=== PATIENT | male | born 1995 | race Caucasian/White ===

== ENCOUNTER 2016-05-01 15:30 | Emergency (ER) | payer OTHER ==
[~2016-05-01] VITALS: Ht 180.3 cm; Wt 74.8 kg
--- NOTE | 2016-05-01 16:45 | REP ---
RIGHT ANKLE SERIES, COMPLETE: 05/01/2016: Clinical history: Trauma. Four views are provided. Findings: The mortise joint was symmetric and preserved. There is no talar dome osteochondral defect. I see no visible or displaced fracture of the distal tibia or fibula. Subtalar joints are intact and no heel spurs. Talonavicular and calcaneocuboid joints were unremarkable. Impression: 1. No visible or displaced fracture about the ankle and no disruption of the ankle mortise joint. 2. Subtalar joints intact. Signed by Grabiel Heredia MD 05/01/2016 04:46 P
[2016-05-01 16:57] VITALS: BP 135/68
[2016-05-01] MEDS ORDERED: IBUP600T26 PO (17:08)
== END 2016-05-01 17:27 | disposition home or self-care (01) ==
LOC: M ED 16:43
DX: S93.401A Sprain of unspecified ligament of right ankle, initial encounter (principal); W19.XXXA Unspecified fall, initial encounter; Y92.138 Other place on military base as the place of occurrence of the external cause; Y93.89 Activity, other specified; Y99.1 Military activity

== ENCOUNTER 2016-07-03 14:29 | Emergency (ER) | payer OTHER ==
[~2016-07-03] VITALS: Ht 180.3 cm; Wt 78.9 kg
[~2016-07-03 14:29] MED LIST: IBUP600T26 PO
[2016-07-03] MEDS ORDERED: PHEN1SUP6 PO (14:41)
[2016-07-03] MEDS ORDERED: LOMO2.5T PO (14:41)
[2016-07-03] MEDS ORDERED: PROBCAP4 PO (14:41)
[2016-07-03] MEDS ORDERED: DICYCLOMINE INJ 20MG/2ML (J0500) IM ONE (15:15)
[2016-07-03] MEDS ORDERED: NS 1,000 ML IV ONE (15:15)
[2016-07-03] MEDS ORDERED: ONDANSETRON 4MG/2ML VIAL (J2405) IV ONE (15:15)
[2016-07-03] MEDS ORDERED: KETOROLAC 30 MG/ML VIAL (J1885) IV ONE (15:15)
[2016-07-03] MEDS ORDERED: ACETAMINOPHEN 325 MG TAB PO ONE (15:15)
[2016-07-03] MEDS ORDERED: GASTROGRAFIN SOLUTION 30ML (Q9963) As Ordered ONE (15:21)
[2016-07-03 15:23] LABS: BASO # 0.1 K/mm3 (0.0-0.2); BASO % 0.9 % (0.0-1.0); EOS # 0.1 K/mm3 (0.0-0.50); EOS % 0.8 % (0.0-3.0); LARGE UNSTAINED CELL # 0.1 K/mm3 (0.0-0.4); LARGE UNSTAINED CELL % 1.4 % (0.0-4.0); LYMPH # 0.8 K/mm3 (1.5-6.5); LYMPH % 9.5 % (24.0-44.0); MEAN CORPUSCULAR HEMOGLOBIN 29.1 pg (27.0-33.0); MEAN CORPUSCULAR HGB CONC 35.4 g/dl (32.0-36.5); MEAN CORPUSCULAR VOLUME 82.1 fl (80.0-96.0); MONO # 0.5 K/mm3 (0.0-0.8); MONO % 7.5 % (0.0-5.0); NEUTROPHILS # 5.6 K/mm3 (1.8-7.7); PLATELET COUNT, AUTOMATED 282 k/mm3 (150-450); RED CELL DISTRIBUTION WIDTH 12.8 % (11.5-14.5)
[2016-07-03] MEDS ORDERED: GASTROGRAFIN SOLUTION 30ML (Q9963) PO ONE (15:30)
[2016-07-03 15:47] LABS: ALBUMIN 4.1 GM/DL (3.2-5.2); ALBUMIN/GLOBULIN RATIO 1.17 (1.00-1.93); ALKALINE PHOSPHATASE 71 U/L (45-117); ALT/SGPT 27 U/L (12-78); ANION GAP 9 MEQ/L (8-16); AST/SGOT 26 U/L (15-37); BILIRUBIN,DIRECT 0.3 MG/DL (0.0-0.2); BILIRUBIN,TOTAL 1.3 MG/DL (0.2-1.0); BLOOD UREA NITROGEN 11 MG/DL (7-18); CALCIUM LEVEL 9.4 MG/DL (8.5-10.1); CARBON DIOXIDE LEVEL 26 MEQ/L (21-32); CHLORIDE LEVEL 104 MEQ/L (98-107); CREATININE FOR GFR 1.27 MG/DL (0.70-1.30); GLOMERULAR FILTRATION RATE > 60.0 (>60); GLUCOSE, FASTING 107 MG/DL (70-105); POTASSIUM SERUM 3.9 MEQ/L (3.5-5.1); SODIUM LEVEL 139 MEQ/L (136-145); TOTAL PROTEIN 7.6 GM/DL (6.4-8.2)
[2016-07-03] MEDS ORDERED: ISOVUE-370 76% 100ML VIAL (Q9967) As Ordered ONE (16:37)
[2016-07-03 17:00] VITALS: BP 138/65
[2016-07-03] MEDS ORDERED: BENT20TA PO (17:20)
[2016-07-03] MEDS ORDERED: ZOFR4TAB3 PO (17:20)
--- NOTE | 2016-07-04 10:39 | REP ---
CT ABDOMEN AND PELVIS: HISTORY: Right lower quadrant pain. COMPARISON: None. CONTRAST: 100 mL [id number] FINDINGS: The lung bases are clear. The liver, gallbladder, pancreas, adrenal glands and kidneys are normal. There is mild splenomegaly with a maximal dimension of 15 cm. The abdominal aorta and paraaortic regions are within normal limits. The bowel loops and their mesenteries are within normal limits. There is no free fluid or free air in the abdomen. CT pelvis: There is no free fluid or free air. The bowel loops and the mesenteries are within normal limits. There is no mass or adenopathy. Scattered round but nonenlarged pericecal lymph nodes are noted. The appendix is well visualized and is unremarkable without evidence of fatty infiltration of the mesoappendix and no evidence of pericecal fatty infiltration. The imaged osseous structures are within normal limits. IMPRESSION: 1. Nonenlarged but round pericecal lymph nodes which might be secondary to mesenteric adenitis. This needs to be correlated clinically. 2. There is splenomegaly of uncertain etiology. Correlate clinically. 3. Other findings as described above. Signed by Jeff Paul DO 07/04/2016 11:36 A
--- NOTE | 2016-07-06 08:43 | ED PDOC ---
Post-Departure Follow-Up radiology report faxed to Юлия Hagan MD July 06, 2016 08:43
== END 2016-07-03 17:34 | disposition home or self-care (01) ==
LOC: M ED 15:09
DX: A08.4 Viral intestinal infection, unspecified (principal); R16.1 Splenomegaly, not elsewhere classified
CPT/HCPCS: 74177; 80048; 80076; 81001; 83690; 85025; 86140; 87086; 96372; 96374; 96375; 99283; J0500; J1885; J2405; Q9963; Q9967